=== PATIENT | female | born 1965 | race African-American/Black ===

== ENCOUNTER → 2018-06-27 | Day surgery (SDC) | payer OTHER ==
[~2018-06-27] MED LIST: IV RINGERS,LACTATED 1000ML 1,000 ML IV SCH; LIDOCAINE 1% PF 2 ML VIAL. ONE; NAPR-514 PO; ORPH100T PO; PROPOFOL 20 ML IV ONE
[2018-06-27 09:44] VITALS: BP 159/78
--- NOTE | 2018-06-27 20:02 | CONS ---
DATE OF CONSULTATION: 06/27/2018 REFERRING PHYSICIAN: Dr. Raúl Pike. REASON: Colorectal screening. HISTORY OF PRESENT ILLNESS: A 53-year-old -[place] female whose past medical history is significant for tubal ligation, hysterectomy, is seen for screening colonoscopy. Bowel habits have recently changed to smaller caliber stools, has some increased constipation. Weight and appetite have been stable. Family history is unrevealing for colon polyps or colon cancer, but no melena and/or hematochezia. She is without additional complaints. PAST MEDICAL HISTORY: Status post hysterectomy, status post tubal ligation, tobaccoism. ALLERGIES: PENICILLIN. MEDICATIONS: None. FAMILY AND SOCIAL HISTORY: She is a smoker and nondrinker. FAMILY HISTORY: Significant for ovarian cancer with her mother. REVIEW OF SYSTEMS: Per records. PHYSICAL EXAMINATION: GENERAL: Reveals a well-nourished, well-developed, -[place] female, who is alert, cooperative, in no acute distress. VITAL SIGNS: Temperature 97.7, pulse 67, respiratory rate is 18. HEENT: Normocephalic and atraumatic head. Pupils and extraocular muscles are not tested. Sclerae anicteric. NECK: Supple. LUNGS: Clear. CARDIOVASCULAR: Reveals an S1, S2 without S3, S4 or appreciable murmur. ABDOMEN: Reveals a soft abdomen, normal bowel sounds without appreciable hepatosplenomegaly. EXTREMITIES: Reveals no cyanosis, clubbing or edema. The infraumbilical hysterectomy incision is noted. IMPRESSION: Colorectal screening. Risks and benefits of procedure including risk of hemorrhage and perforation during the operation have been discussed. The patient is willing to proceed at this time. I would like to thank Dr. Pike for allowing us to consult and participate in this patient's care. VALENTINO MCCORMICK MD DR: ANTONIO/leslie JOB#: [id number] / [id number] ecc RAÚL PIKE MD
--- NOTE | 2018-06-30 14:19 | PATHOLOGY ---
[facility] Accession Number: [id number] . 01 Material submitted: . SIGMOID POLYP . 01 Clinical history: . Colon screening . 02 Diagnosis: Colon biopsy, sigmoid polyp: - Tubular adenoma. . (JPM:mm; 06/30/2018) [facility]/06/30/2018 . 02 Comment: There is no high grade dysplasia or evidence of malignancy. . (JPM:mm; 06/30/2018) . 02 Electronically signed: . Evan Lamas MD, Pathologist NPI- [id number] . 01 Gross description: . Received in formalin labeled "Orly [place], sigmoid colon polyp," is a 0.8 x 0.6 x 0.5 cm polypoid piece of powell soft tissue. The margin is inked and the specimen is sectioned perpendicular to the margin and entirely submitted in cassette A1. (TSD; 06/27/2018) TOB/TOB . 02 Pathologist provided ICD-10: D12.5 . 02 CPT . 648273 Specimen Comment: A courtesy copy of this report has been sent to Specimen Comment: [phone], . Specimen Comment: Report sent to / DR SOLIS Performed at: 01 [facility] [address], [place], [place] [id number] MD Victorino Javed MD Phone: [phone] Performed at: 02 [facility] [address], [place] [id number] MD Evan Lamas MD Phone: [phone]
== END | disposition home or self-care (01) ==
LOC: SURG 07:32
PROVIDERS: ATTEND Internal Medicine Gastroenterology
DX: D12.5 Benign neoplasm of sigmoid colon (principal); K59.00 Constipation, unspecified; K64.0 First degree hemorrhoids; Z80.0 Family history of malignant neoplasm of digestive organs; Z90.710 Acquired absence of both cervix and uterus; Z98.51 Tubal ligation status; Z98.890 Other specified postprocedural states
CPT/HCPCS: 45385; J2704; 45380; 88305

== ENCOUNTER 2018-12-12 18:31 | Emergency (ER) | payer OTHER ==
[~2018-12-12] VITALS: Ht 157.5 cm; Wt 66.7 kg
[~2018-12-12 18:31] MED LIST changes: -IV RINGERS,LACTATED 1000ML 1,000 ML IV SCH; -LIDOCAINE 1% PF 2 ML VIAL. ONE; -PROPOFOL 20 ML IV ONE
[2018-12-12 18:50] VITALS: BP 154/72
[2018-12-12] MEDS ORDERED: ORPH100T PO (19:14)
--- NOTE | 2018-12-12 19:14 | PHYS DOC ---
Past Medical History Past Medical History: No Pertinent History Past Surgical History: Hysterectomy, Other Additional Past Surgical Histo: L ARM Additional Information: 0.5 PPD Alcohol Use: None Drug Use: None Adult General Chief Complaint Chief Complaint: Neck Pain HPI HPI Patient is a 53 year old female that presents with neck pain since Saturday. Also states that bilateral tingling down her legs. The patient states that she was at a job interview and set chair in her neck popped, and she's had pain since that time. Patient rates her pain as 10 out of 10 and states is throbbing. The patient states some taken naproxen at home and that is not helping. Review of Systems Review of Systems Constitutional: Denies fever or chills [] Eyes: Denies change in visual acuity, redness, or eye pain [] HENT: Reports neck pain. Respiratory: Denies cough or shortness of breath [] Cardiovascular: No additional information not addressed in HPI [] GI: Denies abdominal pain, nausea, vomiting, bloody stools or diarrhea [] : Denies dysuria or hematuria [] Musculoskeletal: Denies back pain or joint pain [] Integument: Denies rash or skin lesions [] Neurologic: Denies headache, focal weakness or sensory changes [] Endocrine: Denies polyuria or polydipsia [] Complete systems were reviewed and found to be within normal limits, except as documented in this note. Current Medications Current Medications Current Medications Medications (Trade) Dose Ordered Sig/Essence Start Time Stop Time Status Last Admin Dose Admin Ketorolac Tromethamine (Toradol 30mg Vial) 30 mg 1X ONCE 12/12/18 19:15 12/12/18 19:16 Orphenadrine Citrate (Norflex) 60 mg 1X ONCE 12/12/18 19:15 12/12/18 19:16 Allergies Allergies Allergies Coded Allergies Type Severity Reaction Last Updated Verified Penicillins Allergy Intermediate Rash 06/27/18 Yes Physical Exam Physical Exam Constitutional: Well developed, well nourished, no acute distress, non-toxic appearance. [] HENT: Normocephalic, atraumatic, bilateral external ears normal, oropharynx moist, no oral exudates, nose normal. [] Eyes: PERRLA, EOMI, conjunctiva normal, no discharge. [] Neck: Reduced range of motion, Tenderness to Left side of neck, supple, no stridor or bruit. [] Cardiovascular:Heart rate regular rhythm, no murmur [] Lungs & Thorax: Bilateral breath sounds clear to auscultation [] Abdomen: Bowel sounds normal, soft, no tenderness, no masses, no pulsatile masses. [] Skin: Warm, dry, no erythema, no rash. [] Back: No tenderness, no CVA tenderness. [] Extremities: No deformity noted, Full ROM. Neurologic: Alert and oriented X 3, normal motor function, normal sensory function, no focal deficits noted. [] Psychologic: Affect normal, judgement normal, mood normal. [] Current Patient Data Vital Signs Vital Signs Date Time Temp Pulse Resp B/P (MAP) Pulse Ox O2 Delivery O2 Flow Rate FiO2 12/12/18 18:50 98.3 66 20 154/72 (99) 100 Room Air 98.3 EKG EKG [] Radiology/Procedures Radiology/Procedures [] Course & Med Decision Making Course & Med Decision Making Pertinent Labs and Imaging studies reviewed. (See chart for details) Appears to be musculoskeletal in nature. Will give Toradol and Norflex. Dragon Disclaimer Dragon Disclaimer This electronic medical record was generated, in whole or in part, using a voice recognition dictation system. Departure Departure Impression: Primary Impression: Cervical strain, acute Disposition: HOME, SELF-CARE Condition: STABLE Referrals: NO PCP (PCP) Patient Instructions: Musculoskeletal Pain Additional Instructions: Thank you for visiting [facility]. We appreciate you trusting us with your care. If any additional problems come up don't hesitate to return to visit us. Please follow up with your primary care provider so they can plan additional care if needed and know about the problem that you had. If symptoms worsen come back to the Emergency Department. Any concerning symptoms that start such as chest pain, shortness of air, weakness or numbness on one side of the body, running high fevers or any other concerning symptoms return to the ER. Please fill your medications at any pharmacy and follow the prescription instructions. Scripts Orphenadrine Citrate (ORPHENADRINE CITRATE) 100 Mg Tablet.er 1 TAB PO BID, #30 TAB 1 Refill Prov: MIGUELITO BOSCH KIM 12/12/18 Problem Qualifiers Primary Impression: Cervical strain, acute Encounter type: initial encounter Qualified Codes: S16.1XXA - Strain of muscle, fascia and tendon at neck level, initial encounter MIGUELITO BOSCH APRN Dec 12, 2018 19:14
[2018-12-12] MEDS ORDERED: ORPHENADRINE CITRATE 60 MG/2 ML VIAL. IM ONE (19:15)
[2018-12-12] MEDS ORDERED: KETOROLAC 30 MG/ML VIAL. IM ONE (19:15)
== END 2018-12-12 19:27 | disposition home or self-care (01) ==
LOC: ER 18:31
DX: S16.1XXA Strain of muscle, fascia and tendon at neck level, initial encounter (principal); F17.200 Nicotine dependence, unspecified, uncomplicated; Z88.0 Allergy status to penicillin; X50.9XXA Other and unspecified overexertion or strenuous movements or postures, initial encounter; Y93.89 Activity, other specified; Y92.89 Other specified places as the place of occurrence of the external cause; Y99.8 Other external cause status
CPT/HCPCS: 96372; 99284; J1885; J2360

== ENCOUNTER 2021-07-14 12:20 | Emergency (ER) | payer BC, OTHER ==
[~2021-07-14] VITALS: Ht 157.5 cm; Wt 66.4 kg
[2021-07-14] MEDS ORDERED: IBUPROFEN 200 MG TABLET. PO ONE (13:30)
[2021-07-14] MEDS ORDERED: DEXAMETHASONE SOD PHOS 20 MG/5 ML VIAL. IM ONE (13:30)
[2021-07-14] MEDS ORDERED: ACETAMINOPHEN 500 MG TABLET PO ONE (13:30)
--- NOTE | 2021-07-14 13:51 | PHYS DOC ---
Past Medical History Past Medical History: No Pertinent History Past Surgical History: Hysterectomy, Other Additional Past Surgical Histo: L ARM Smoking Status: Current Every Day Smoker Alcohol Use: None Drug Use: None General Adult EDM: Chief Complaint: FLU SYMPTOM HPI: HPI: Patient is a 56 year old female who presents to the emergency department complaining of ongoing muscle aches, generalized weakness, intermittent headaches, cough with congestion, intermittent ear popping with swallowing since being diagnosed with the COVID-19 virus on May. Patient reports her primary care physician Dr. Lucero advised she come to the emergency department for reevaluation concerning symptoms lasting for several weeks. Patient denies taking [id number] medications or prescription medications at home, has not tried nonpharmacological symptom relief methods at home. Patient also reports right side low back sciatica flareup for the past week. Patient denies injury to her back, denies numbness or tingling to her buttocks or genitals, denies urinary or bowel incontinence, denies urinary retention, denies burning with urination, increased urinary frequency, urinary pressure, denies hematuria, or other dysuria. Patient denies nausea, vomiting, diarrhea, denies chest pain or chest palpitations, denies nasal congestion. Patient denies fever or chills at home. Patient denies loss of taste or loss of smell. Patient denies other physical complaints or physical concerns. Patient reports a past surgical history of hysterectomy. Patient reports she does not take any prescription medications at home. Review of Systems: Review of Systems: 14 body systems of review of systems have been reviewed. See HPI for pertinent positives and negative responses, otherwise all other systems are negative, nonpertinent or noncontributory. Constitutional: Negative except as outlined in HPI above. Skin: Negative except as outlined in HPI above. Eyes: Negative except as outlined in HPI above. HENT: Negative except as outlined in HPI above. Respiratory: Negative except as outlined in HPI above. Cardiovascular: Negative except as outlined in HPI above. GI: Negative except as outlined in HPI above. : Negative except as outlined in HPI above. Musculoskeletal: Negative except as outlined in HPI above. Integument: Negative except as outlined in HPI above. Neurologic: Negative except as outlined in HPI above. Endocrine: Negative except as outlined in HPI above. Lymphatic: Negative except as outlined in HPI above. Psychiatric: Negative except as outlined in HPI above. Heart Score: C/O Chest Pain: No Risk Factors: Risk Factors: DM, Current or recent (<one month) smoker, HTN, HLP, family history of CAD, obesity. Risk Scores: Score 0 - 3: 2.5% MACE over next 6 weeks - Discharge Home Score 4 - 6: 20.3% MACE over next 6 weeks - Admit for Clinical Observation Score 7 - 10: 72.7% MACE over next 6 weeks - Early Invasive Strategies Allergies: Allergies: Allergies Coded Allergies Type Severity Reaction Last Updated Verified Penicillins Allergy Intermediate Rash 06/27/18 Yes Physical Exam: PE: Constitutional: Well developed, well nourished, no acute distress, non-toxic appearance. 56-year-old female in no apparent distress. HENT: Normocephalic, atraumatic. Oral mucosa moist, pink, no deep tissue infectious process appreciated, bilateral TMs intact and within normal limits, no drainage from external auditory canals, no lymphadenopathy of the head or neck appreciated. Patient is speaking in normal voice tones. Eyes: Conjunctiva normal, no discharge. No scleral icterus. Neck: Normal range of motion, no stridor. No nuchal rigidity, no meningismus signs. Cardiovascular: No cyanosis appreciated, distal cap refill less than 2 seconds. Heart sounds S1 1 S2, regular rate and rhythm auscultation. Lungs & Thorax: Patient is in no respiratory distress, no audible adventitious lung sounds appreciated. Lung sounds clear to auscultation all lung cole, normal work of breathing. Abdomen: Nontender, no abnormalities noted. Skin: Warm, dry, no erythema, no rash. Back: No left-sided or right-sided CVA TTP, no midline spinal pain, pain to palpation over right-sided lumbar muscular structures, no deformities. Extremities: No tenderness, no cyanosis, no clubbing, ROM intact, no edema. intact 5/5 motor strength with hip flexion, knee flexion,extension, knee adduction, plantar/dorsiflexion at the ankle, and dorsiflexion of the toe bilaterally. Distal cap refill less than 2 seconds of bilateral lower e xtremities, 2+ dorsalis pedis pulses equal bilateral lower extremities. Neurologic: Alert and oriented X 3, normal motor function, normal sensory function, no focal deficits noted. Psychologic: Affect normal, judgement normal, mood normal. Current Patient Data: Labs: Laboratory Tests Test 07/14/21 13:20 07/14/21 14:25 White Blood Count 5.0 x10^3/uL Red Blood Count 4.17 x10^6/uL Hemoglobin 12.8 g/dL Hematocrit 37.7 % Mean Corpuscular Volume 90 fL Mean Corpuscular Hemoglobin 31 pg Mean Corpuscular Hemoglobin Concent 34 g/dL Red Cell Distribution Width 13.5 % Platelet Count 203 x10^3/uL Neutrophils (%) (Auto) 71 % Lymphocytes (%) (Auto) 18 % Monocytes (%) (Auto) 9 % Eosinophils (%) (Auto) 1 % Basophils (%) (Auto) 1 % Neutrophils # (Auto) 3.6 x10^3/uL Lymphocytes # (Auto) 0.9 x10^3/uL Monocytes # (Auto) 0.5 x10^3/uL Eosinophils # (Auto) 0.1 x10^3/uL Basophils # (Auto) 0.0 x10^3/uL Sodium Level 144 mmol/L Potassium Level 3.8 mmol/L Chloride Level 105 mmol/L Carbon Dioxide Level 26 mmol/L Anion Gap 13 Blood Urea Nitrogen 9 mg/dL Creatinine 1.1 mg/dL Estimated GFR (Cockcroft-Gault) 61.7 Glucose Level 93 mg/dL Calcium Level 8.5 mg/dL Influenza Type A Antigen Positive Influenza Type B Antigen Negative SARS-CoV-2 Antigen (Rapid) Negative Vital Signs: Vital Signs Date Time Temp Pulse Resp B/P (MAP) Pulse Ox O2 Delivery O2 Flow Rate FiO2 07/14/21 12:33 102.7 91 20 143/81 (101) 97 Room Air 102.7 EKG: EKG: [] Radiology/Procedures: Radiology/Procedures: REASON: Cough, chest congestion PROCEDURE: CHEST AP ONLY Exam Date: 07/14/2021 1:31 PM XR CHEST 1V Indication: Reason: Cough, chest congestion / Spl. Instructions: / History: . FINDINGS/ IMPRESSION: Calcified granuloma in the right upper lobe is noted. The cardiac silhouette and pulmonary vasculature are within normal limits. There is no focal consolidation, pleural effusion or pneumothorax. The visualized osseous structures are intact. Electronically signed by: Kahlil Rabago MD (07/14/2021 2:08 PM) [facility] Course & Med Decision Making: Course & Med Decision Making Pertinent Labs and Imaging studies reviewed. (See chart for details) 56-year-old female, vital signs reviewed, presents to the emergency department complaining of ongoing flulike symptoms since being diagnosed with the COVID-19 virus on May 292021. Physical examination is consistent with sciatica flareup of the right, patient also presents with fever, will order rapid COVID- 19/flu A/B testing, CBC, BMP, saline lock, 1 L normal saline, Tylenol and Motrin for fever and generalized body aches. No saddle anesthesia present. Patient has intact 5/5 motor strength with hip flexion, knee flexion,extension, knee adduction, plantar/dorsiflexion at the ankle, and dorsiflexion of the toe bilaterally. Additionally there was no hx of IVDU, Immunosuppression, cancer, saddle anesthesia, bowel/bladder incontinence/retention, or trauma that would necessitate emergent imaging. Will reevaluate after period of time. Patient's serum labs unremarkable, the patient rapid Covid testing is negative, rapid flu B is negative, patient did test positive for rapid flu A. Upon reevaluation of the patient, patient reports she feels much better now, patient's current oral temp is 98.8. Considered Tamiflu regimen however onset of systems greater than 48 hours, discussed with patient home care for flu symptoms, staying well-hydrated, Tylenol and/or Motrin use for fevers, [id number] cold and flu medications for symptoms, discussed with patient home care for sciatica flareup, strict follow-up with primary care for ongoing symptoms, return to ER precautions and concerns were discussed, patient gave verbal understanding of and is amenable to ED discharge planning. Discussed with the patient all findings and diagnostic testing as well as the need to follow-up with their primary care provider for further evaluation and treatment or return to the ED if any new or worsening symptoms. Strict return precautions were also discussed at length, the patient voiced understanding and agreement with the discharge planning. The patient was nontoxic in appearance, in no apparent distress, and hemodynamically stable at the time of disposition. Dragon Disclaimer: Dragon Disclaimer: This electronic medical record was generated, in whole or in part, using a voice recognition dictation system. Departure Departure Impression: Primary Impression: Influenza A Additional Impressions: Viral syndrome Lumbago Qualified Codes: M54.41 - Lumbago with sciatica, right side; G89.29 - Other chronic pain Disposition: 01 HOME / SELF CARE / HOMELESS Condition: GOOD Referrals: MOI LUCERO MD (PCP) Patient Instructions: Influenza Facts, Influenza Virus Vaccine injection (Fluarix), Sciatica, Viral Syndrome Additional Instructions: You were seen today in the emergency department for flulike signs and symptoms since May. Your rapid Covid test is negative, you were positive for influenza A, you were also treated today with a steroid and pain medication for your sciatica flareup, you were given 1 L normal saline intravenously along with oral Tylenol and Motrin for fevers and your low right-sided back pain. Your fever has resolved and you reported you are feeling much better after treatment in the ER today. As we discussed, I suspect your fever may return, please use Tylenol and/or Motrin for return of fevers, body aches and pains, you may consider using hnun-eou-qaidjzf cold and flu medications to help with symptoms, stay well-hydrated, please follow-up with your primary care physician for ongoing symptoms, return to the emergency department for worsening symptoms or other concerns, thank you for visiting our Emergency Department. It was a pleasure taking care of you today in the emergency department and we appreciate you trusting us with your care. If any additional problems come up don't hesitate to return to visit us. Please follow up with your primary care provider so they can plan additional care if needed and know about the problem that you had. If symptoms worsen come back to the Emergency Department. Any concerning symptoms that start such as chest pain, shortness of air, weakness or numbness on one side of the body, running high fevers or any other concerning symptoms return to the ER. MIGUELITO LEONARD APRN Jul 14, 2021 13:51
[2021-07-14 14:00] LABS: BASO % 1 % (0-3); EOS # 0.1 x10^3/uL (0.0-0.7); EOS % 1 % (0-3); HEMATOCRIT 37.7 % (36.0-47.0); HEMOGLOBIN 12.8 g/dL (12.0-15.5); LYMPH # 0.9 x10^3/uL (1.0-4.8); LYMPH % 18 % (24-48); MEAN CORPUSCULAR HEMOGLOBIN 31 pg (25-35); MEAN CORPUSCULAR HGB CONC 34 g/dL (31-37); MEAN CORPUSCULAR VOLUME 90 fL (79-100); MONO # 0.5 x10^3/uL (0.0-1.1); MONO % 9 % (0-9); NEUT # 3.6 x10^3/uL (1.8-7.7); NEUT % 71 % (31-73); PLATELET COUNT 203 x10^3/uL (140-400); RED BLOOD COUNT 4.17 x10^6/uL (3.50-5.40); RED CELL DISTRIBUTION WIDTH 13.5 % (11.5-14.5)
[2021-07-14] MEDS ORDERED: IV NORMAL SALINE 1000ML BAG 1,000 ML IV ONE (14:00)
[2021-07-14 14:09] LABS: CALCIUM 8.5 mg/dL (8.5-10.1); CREATININE 1.1 mg/dL (0.6-1.0); GFR 61.7; POTASSIUM 3.8 mmol/L (3.5-5.1)
--- NOTE | 2021-07-14 14:10 | RAD ---
Exam Date: 07/14/2021 1:31 PM XR CHEST 1V Indication: Reason: Cough, chest congestion / Spl. Instructions: / History: . FINDINGS/ IMPRESSION: Calcified granuloma in the right upper lobe is noted. The cardiac silhouette and pulmonary vasculature are within normal limits. There is no focal consolidation, pleural effusion or pneumothorax. The visualized osseous structures are intact. Electronically signed by: Kahlil Rabago MD (07/14/2021 2:08 PM) [facility]
[2021-07-14] MEDS ORDERED: DEXAMETHASONE SOD PHOS 20 MG/5 ML VIAL. IV ONE (14:30)
[2021-07-14 14:48] VITALS: BP 159/77
[2021-07-14 14:53] LABS: INFLUENZA B PATIENT NEGATIVE (NEGATIVE)
[2021-07-14 14:56] LABS: INFLUENZA A PATIENT POSITIVE (NEGATIVE)
== END 2021-07-14 15:25 | disposition home or self-care (01) ==
LOC: ER 12:20 → UNDOADMIN 12:48 → ED HOLD 12:48 → ER 15:25
DX: J09.X2 Influenza due to identified novel influenza A virus with other respiratory manifestations (principal); F17.200 Nicotine dependence, unspecified, uncomplicated; Z90.710 Acquired absence of both cervix and uterus; Z88.0 Allergy status to penicillin; Z20.822 Contact with and (suspected) exposure to COVID-19
CPT/HCPCS: 36415; 71045; 80048; 85025; 87428; 96361; 96374; 99284; J1100; J7030

== ENCOUNTER → 2021-09-14 | Outpatient (CLI) | payer BC ==
[~2021-09-14] MED LIST changes: +ATOR10TA60 PO; +MELO15TA23 PO
--- NOTE | 2021-09-14 13:57 | EKG ---
[facility] [address] [place] [address] Test Date: 2021-09-14 Test Time: 13:57:05 Pat Name: FOREST JONES Department: Room: Gender: F Methods Analyst Data Processing: TAMRA : 1965 Requested By: SARAH SIMONS Order Number: [id number] Reading MD: Warren Sandoval Measurements Intervals [place] Rate: 46 P: 42 MT: 148 QRS: 24 QRSD: 82 T: 35 QT: 500 QTc: 439 Interpretive Statements SINUS BRADYCARDIA OTHERWISE NORMAL ECG RI6.01 No previous ECG available for comparison Electronically Signed On 09-15-2021 17:52:33 CDT by Warren Sandoval
[2021-09-14 14:17] LABS: BASO % 1 % (0-3); EOS # 0.1 x10^3/uL (0.0-0.7); EOS % 2 % (0-3); HEMATOCRIT 35.7 % (36.0-47.0); HEMOGLOBIN 12.1 g/dL (12.0-15.5); LYMPH # 2.8 x10^3/uL (1.0-4.8); LYMPH % 50 % (24-48); MEAN CORPUSCULAR HEMOGLOBIN 31 pg (25-35); MEAN CORPUSCULAR HGB CONC 34 g/dL (31-37); MEAN CORPUSCULAR VOLUME 91 fL (79-100); MONO # 0.3 x10^3/uL (0.0-1.1); MONO % 5 % (0-9); NEUT # 2.4 x10^3/uL (1.8-7.7); NEUT % 42 % (31-73); PLATELET COUNT 212 x10^3/uL (140-400); RED BLOOD COUNT 3.91 x10^6/uL (3.50-5.40); RED CELL DISTRIBUTION WIDTH 13.4 % (11.5-14.5); WHITE BLOOD COUNT 5.6 x10^3/uL (4.0-11.0)
[2021-09-14 14:27] LABS: ALBUMIN 3.5 g/dL (3.4-5.0); CALCIUM 9.3 mg/dL (8.5-10.1); CREATININE 1.1 mg/dL (0.6-1.0); GFR 61.7; POTASSIUM 3.6 mmol/L (3.5-5.1)
[2021-09-14 14:28] LABS: PROTHROMBIN TIME PATIENT 12.9 SEC (11.7-14.0)
[2021-09-15 04:11] LABS: HEMOGLOBIN A1C 5.4 % (4.8-5.6)
== END ==
LOC: SURGPAT 13:06
PROVIDERS: ATTEND Orthopaedic Surgery
DX: Z01.818 Encounter for other preprocedural examination (principal); M16.11 Unilateral primary osteoarthritis, right hip
CPT/HCPCS: 36415; 80048; 82040; 82306; 83036; 85025; 85610; 85651; 85730; 87641; 93005

== ENCOUNTER → 2021-09-22 | Outpatient (CLI) | payer BC | LOC: LAB 09:48 | PROVIDERS: ATTEND Orthopaedic Surgery | DX: Z01.812 Encounter for preprocedural laboratory examination (principal); Z20.822 Contact with and (suspected) exposure to COVID-19 | CPT/HCPCS: U0003 ==

== ENCOUNTER 2021-09-25 07:51 | Observation (INO) | payer BC ==
[~2021-09-25] VITALS: Ht 162.6 cm; Wt 66.7 kg
[2021-09-25] VITALS (13 sets, daily range): BP systolic 103–171; BP diastolic 61–114
[~2021-09-25 07:51] MED LIST changes: +ACETAMINOPHEN 500 MG TABLET PO PRN; +CLINDAMYCIN 900MG PREMIX 50 ML IV PRN; +DEXAMETHASONE SOD PHOS 4 MG/ML VIAL ONE; +GABAPENTIN 300 MG CAPSULE. PO PRN; +HYDROmorphone 2 MG/ML INJ. IVP PRN; +IV RINGERS,LACTATED 1000ML 1,000 ML IV SCH; +LIDOCAINE 1% PF 5 ML VIAL. ONE; +MELOXICAM 7.5 MG TABLET PO PRN; +MORPHINE SULFATE 2 MG/ML INJ. IVP PRN; +MORPHINE SULFATE 5 MG, KETOROLAC 30MG VIAL 30 MG, ROPIVacaine 0.5% PF 60 ML, EPINEPHrin... INT ART ONE; +ONDANSETRON PF 4 MG/2 ML VIAL. ONE; +PROCHLORPERAZINE 10 MG/2 ML VIAL. IVP PRN; +PROPOFOL 10 MG/ML (20ML) VIAL. IV ONE; +ROCURONIUM 100 MG/10 ML VIAL. ONE; +TRANEXAMIC ACID 1,000 MG in IV NS 50ML -- 1ST BAG INJ ONE; +fentaNYL PF VIAL 100 MCG/2 ML VIAL IVP PRN
[2021-09-25] MEDS ORDERED: TRANEXAMIC ACID 1,000 MG in IV NS 50ML -- 2ND BAG INJ ONE (08:00)
[2021-09-25] MEDS ORDERED: fentaNYL PF VIAL 100 MCG/2 ML VIAL ONE (08:40)
[2021-09-25] MEDS ORDERED: TRANEXAMIC ACID in NS IVPB 50 ML ONE (09:27)
--- NOTE | 2021-09-25 10:53 | PDOC4 ---
OPERATIVE NOTE Date: Date: September 25, 2021 Pre-Op Diagnosis: 1. 56-year-old female primary osteoarthritis right hip Post-Op Diagnosis: 1. 56-year-old female primary osteoarthritis right hip 2. Status post right primary total hip arthroplasty Procedure Performed: 1. Right primary total hip arthroplasty Surgeon: Gricel Anesthesia Type: General Blood Loss: 200 cc Specimans Obtained: Products of right primary total hip arthroplasty Complications: Patient tolerated the procedure well without any apparent intraoperative complications. Operative Note: See dictation SHANE HOWARD September 25, 2021 10:53
[2021-09-25] MEDS ORDERED: diphenhydrAMINE 50 MG/ML VIAL IVP PRN (11:00)
[2021-09-25] MEDS ORDERED: MORPHINE SULFATE 2 MG/ML INJ. IVP PRN (11:00)
[2021-09-25] MEDS ORDERED: CALCIUM CARBONATE 500 MG TAB.CHEW PO PRN (11:00)
[2021-09-25] MEDS ORDERED: DEXTROSE 50% 25 GM / 50ML DISP.SYRIN. IV PRN (11:00)
[2021-09-25] MEDS ORDERED: 0.9 % SODIUM CHLORIDE 10 ML DISP.SYRIN. IV PRN (11:00)
[2021-09-25] MEDS ORDERED: SUGAMMADEX SODIUM 200 MG/2 ML VIAL. IVP ONE (11:15)
[2021-09-25] MEDS ORDERED: PHENYLEPHRINE in 0.9% NACL PF 1 MG/10 ML SYRINGE. IV ONE (11:24)
[2021-09-25] MEDS ORDERED: GLYCOPYRROLATE 1 MG/5 ML VIAL. ONE (11:24)
[2021-09-25] MEDS ORDERED: HYDROmorphone 2 MG/ML INJ. ONE (11:31)
[2021-09-25] MEDS: IV RINGERS,LACTATED 1000ML 1,000 ML IV SCH (12:00)
[2021-09-25] MEDS: ONDANSETRON PF 4 MG/2 ML VIAL. IVP SCH ×3 (12:00→23:38)
[2021-09-25] MEDS: ONDANSETRON ODT 4 MG TAB.RAPDIS. PO SCH ×3 (12:00→23:38)
--- NOTE | 2021-09-25 12:45 | HP ---
DATE OF SERVICE: 09/25/2021 ADMIT DATE: 09/25/2021 HISTORY OF PRESENT ILLNESS: The patient is here today. She is a 56-year-old female here today with complaints of right hip pain, which has been unremitting to conservative therapies. She has tried multiple conservative therapies, nothing is helping her symptoms. She is now having significant activities of daily living difficulties secondary to that. Also, any attempts at activities outside of that even at work or at home are met with significant pain, discomfort and issues completing tasks. No other complaints at this point. PAST MEDICAL HISTORY: Remarkable for knee pain as well as cervical DJD with radiculopathy and lumbar radiculopathy. MEDICATIONS: Acetaminophen, aspirin, Dulcolax, Tums, occasional clindamycin, ____, meloxicam and naproxen. MEDICATION ALLERGIES: PENICILLIN. PHYSICAL EXAMINATION: GENERAL: She is alert and oriented x 3. HEENT: She is having no issues with examination of HEENT. HEART: Regular rate and rhythm. LUNGS: Clear to auscultation in all cole. ABDOMEN: Soft and nontender. Normal bowel sounds. MUSCULOSKELETAL: The hip is painful with flexion, extension, internal and external rotation. She actually has only 10 degrees of internal rotation today. External rotation 25, abduction 25, flexion is to 90 only, but she does not have any flexion contracture at this point, but pain throughout the arc of motion at this point. Distal neurovascular status is fully intact. No atrophy of musculature. IMPRESSION: Severe degenerative joint disease, right hip. PLAN: At this time, we have talked with her again about the right hip. We have gone over the risks, complications as well as benefits and expectations of surgery, postoperative protocol and followup. She would like to go ahead and get that done as soon as she sees Anesthesia this morning. GÓMEZ/NATHAN DR: Cecil TID: [id number]
--- NOTE | 2021-09-25 13:21 | PDOC2 ---
CONSULT Date of Consult Date of Consult DATE: 09/25/21 TIME: 13:19 Reason for Consult Reason for Consult: Medical Management Referring Physician Referring Physician: Dr. Reinier Monsalve Identification/Chief Complaint Chief Complaint Right hip osteoarthritis/pain Source Source: Chart review, Patient History of Present Illness Reason for Visit: Ms Washington is a 56yo female with PMHx HLD, osteoarthritis, smoker who comes in for severe right hip osteoarthritis pain for elective total hip arthroplasty. Immediately postoperatively was cold improved with bear hugger. Did not require oxygen for several hours upon awakening is alert and has improved pain in her right hip. Preoperative labs with CR 1.1 A1c 5.4, preoperative EKG sinus rhythm ST segment abnormalities TWI or Q waves. Past Medical History Cardiovascular: Hyperlipidemia Past Surgical History Past Surgical History: Total hip replacement (Right), Tubal Ligation, Hysterectomy, Other (left elbow tennis elbow release. Right LEO 09/25/2021) Family History Family History: High Cholestrol, Hypothyroidism Social History <1 pack per day ALCOHOL: none Drugs: None Lives: with Family Domestic Violence: Neg Current Medications Current Medications Current Medications Fentanyl Citrate (Fentanyl 2ml Vial) 25 mcg PRN Q5MIN PRN IVP MILD PAIN 1-3; Start 09/25/21 at 06:00; Stop 09/26/21 at 05:59 Fentanyl Citrate (Fentanyl 2ml Vial) 50 mcg PRN Q5MIN PRN IVP MODERATE PAIN 4- 6; Start 09/25/21 at 06:00; Stop 09/26/21 at 05:59 Morphine Sulfate (Morphine Sulfate) 1 mg PRN Q10MIN PRN IVP SEVERE PAIN 7-10; Start 09/25/21 at 06:00; Stop 09/26/21 at 05:59 Ringer's Solution 1,000 ml @ 30 mls/hr Q24H IV Last administered on 09/25/21at 08:38; Start 09/25/21 at 06:00; Stop 09/25/21 at 17:59 Hydromorphone HCl (Dilaudid) 0.5 mg PRN Q10MIN PRN IVP SEVERE PAIN 7-10, 2nd CHOICE; Start 09/25/21 at 06:00; Stop 09/26/21 at 05:59 Prochlorperazine Edisylate (Compazine) 5 mg PACU PRN PRN IVP NAUSEA, MRX1; Start 09/25/21 at 06:00; Stop 09/26/21 at 05:59 Meloxicam (Mobic) 15 mg 1X PREOP PRN PO PRIOR TO PROCEDURE Last administered on 09/25/21at 08:37; Start 09/25/21 at 06:00; Stop 09/25/21 at 18:00 Gabapentin (Neurontin) 600 mg 1X PREOP PRN PO PRIOR TO PROCEDURE Last admini stered on 09/25/21at 08:37; Start 09/25/21 at 06:00; Stop 09/25/21 at 18:00 Acetaminophen (Tylenol) 1,000 mg 1X PREOP PRN PO PRIOR TO PROCEDURE Last administered on 09/25/21at 08:37; Start 09/25/21 at 06:00; Stop 09/25/21 at 18:00 Clindamycin Phosphate 50 ml @ 100 mls/hr 1X PREOP PRN IV PRIOR TO PROCEDURE; Start 09/25/21 at 06:00; Stop 09/25/21 at 18:00 Morphine Sulfate 5 mg/Ketorolac Tromethamine 30 mg/Ropivacaine 60 ml/Epinephrine HCl 0.5 mg/Sodium Chloride 62 ml @ 62 mls/hr 1X PERIOP ONCE INT ART Last administered on 09/25/21at 11:17; Start 09/25/21 at 06:00; Stop 09/25/21 at 06:59; Status DC Tranexamic Acid 50 ml @ 50 mls/hr 1X PERIOP ONCE INJ ; Start 09/25/21 at 06:00; Stop 09/25/21 at 06:59; Status DC Tranexamic Acid 50 ml @ 50 mls/hr 1X PERIOP ONCE INJ Last administered on 09/25/21at 11:17; Start 09/25/21 at 08:00; Stop 09/25/21 at 08:59; Status DC Propofol (Diprivan) 200 mg STK-MED ONCE IV ; Start 09/25/21 at 06:56; Stop 09/25/21 at 06:57; Status DC Lidocaine HCl (Xylocaine-Mpf 1% 5ml Vial) 5 ml STK-MED ONCE .ROUTE ; Start 09/25/21 at 06:57; Stop 09/25/21 at 06:57; Status DC Rocuronium [place] (Zemuron) 100 mg STK-MED ONCE .ROUTE ; Start 09/25/21 at 06:57; Stop 09/25/21 at 06:57; Status DC Ondansetron HCl (Zofran) 4 mg STK-MED ONCE .ROUTE ; Start 09/25/21 at 07:00; Stop 09/25/21 at 07:01; Status DC Dexamethasone Sodium Phosphate (Decadron) 4 mg STK-MED ONCE .ROUTE ; Start 09/25/21 at 07:00; Stop 09/25/21 at 07:01; Status DC Fentanyl Citrate (Fentanyl 2ml Vial) 100 mcg STK-MED ONCE .ROUTE ; Start 09/25/21 at 08:40; Stop 09/25/21 at 08:40; Status DC Tranexamic Acid 50 ml @ As Directed STK-MED ONCE .ROUTE ; Start 09/25/21 at 09:27; Stop 09/25/21 at 09:27; Status DC Morphine Sulfate (Morphine Sulfate) 2 mg PRN Q1HR PRN IVP PAIN; Start 09/25/21 at 11:00 Diphenhydramine HCl (Benadryl) 25 mg PRN Q6HRS PRN IVP ITCHING; Start 09/25/21 at 11:00 Senna/Docusate Sodium (Senna Plus) 1 tab DAILY PO ; Start 09/26/21 at 09:00 Clindamycin Phosphate 50 ml @ 100 mls/hr Q6H IV ; Start 09/25/21 at 17:00; Stop 09/26/21 at 05:29 Magnesium Hydroxide (Milk Of Magnesia) 2,400 mg 1X PRN PRN PO CONSTIPATION; Start 09/26/21 at 06:00; Stop 09/27/21 at 05:59 Bisacodyl (Dulcolax Supp) 10 mg 1X PRN PRN AR CONSTIPATION; Start 09/26/21 at 16:00; Stop 09/27/21 at 15:59 Calcium Carbonate/ Glycine (Tums) 500 mg PRN QID PRN PO INDIGESTION; Start 09/25/21 at 11:00 Sodium Chloride (Normal Saline Flush) 10 ml QSHIFT PRN IV AFTER MEDS AND BLOOD DRAWS; Start 09/25/21 at 11:00 Acetaminophen (Tylenol) 1,000 mg Q6H PO ; Start 09/26/21 at 09:00 Gabapentin (Neurontin) 100 mg Q8HRS PO ; Start 09/26/21 at 06:00 Ondansetron HCl (Zofran) 4 mg Q6HRS IVP ; Start 09/25/21 at 12:00; Stop 09/26/21 at 06:01 Ondansetron HCl (Zofran Odt) 4 mg Q6HRS PO ; Start 09/25/21 at 12:00; Stop 09/26/21 at 06:01 Oxycodone HCl (Roxicodone) 5 mg PRN Q4HRS PRN PO Pain score 4-6; Start 09/25/21 at 11:00 Dextrose (Dextrose 50%-Water Syringe) 12.5 gm PRN Q15MIN PRN IV SEE COMMENTS; Start 09/25/21 at 11:00 Ringer's Solution 1,000 ml @ 75 mls/hr [id number] IV ; Start 09/25/21 at 12:00 Aspirin (Melissa Aspirin) 325 mg BID PO ; Start 09/25/21 at 21:00 Sugammadex Sodium (Bridion) 200 mg 1X ONCE IVP ; Start 09/25/21 at 11:15; Stop 09/25/21 at 11:16; Status DC Glycopyrrolate (Robinul) 1 mg STK-MED ONCE .ROUTE ; Start 09/25/21 at 11:24; Stop 09/25/21 at 11:25; Status DC Phenylephrine HCl (PHENYLEPHRINE in 0.9% NACL PF) 1 mg STK-MED ONCE IV ; Start 09/25/21 at 11:24; Stop 09/25/21 at 11:25; Status DC Hydromorphone HCl (Dilaudid) 2 mg STK-MED ONCE .ROUTE ; Start 09/25/21 at 11:31; Stop 09/25/21 at 11:31; Status DC Active Scripts Active Naproxen 500 Mg Tablet 1 Tab PO BID 10 Days Reported Meloxicam 15 Mg Tablet 1 Tab PO BID 30 Days Atorvastatin Calcium 10 Mg Tablet 10 Mg PO HS Allergies Allergies: Coded Allergies: Penicillins (Verified Allergy, Intermediate, Rash, 09/25/21) hives ROS General: No: Chills, Night Sweats, Fatigue, Malaise, Appetite, Other PSYCHOLOGICAL ROS: No: Anxiety, Behavioral Disorder, Concentration difficultie, Decreased libido, Depression, Disorientation, Hallucinations, Hostility, Irritablity, Memory difficulties, Mood Swings, Obsessive thoughts, Physical abuse, Sexual abuse, Sleep disturbances, Suicidal ideation, Other Eyes: No Blurry vision, No Decreased vision, No Double vision, No Dry eyes, No Excessive tearing, No Eye Pain, No Itchy Eyes, No Loss of vision, No Photophobia, No Scotomata, No Uses contacts, No Uses glasses, No Other HEENT: No: Heacaches, Visual Changes, Hearing change, Nasal congestion, Nasal discharge, Oral lesions, Sinus pain, Sore Throat, Epistaxis, Sneezing, Snoring, Tinnitus, Vertigo, Vocal changes, Other ALLERGY AND IMMUNOLOGY: No: Hives, Insect Bite Sensitivity, Itchy/Watery Eyes, Nasal Congestion, Post Nasal Drip, Seasonal Allergies, Other Hematological and Lymphatic: No: Bleeding Problems, Blood Clots, Blood Transfusions, Brusing, Night Sweats, Pallor, Swollen Lymph Nodes, Other ENDOCRINE: No: Breast Changes, Galactorrhea, Hair Pattern Changes, Hot Flashes, Malaise/lethargy, Mood Swings, Palpitations, Polydipsia/polyuria, Skin Changes, Temperature Intolerance, Unexpected Weight Changes, Other Breast: No New/Changing Breast Lumps, No Nipple changes, No Nipple discharge, No Other Respiratory: No: Cough, Hemoptysis, Orthopnea, Pleuritic Pain, Shortness of breath, SOB with excertion, Sputum Changes, Stridor, Tachypnea, Wheezing, Other Cardiovascular: No Chest Pain, No Palpitations, No Orthopnea, No Paroxysmal Noc. Dyspnea, No Edema, No Lt Headedness, No Other Gastrointestinal: No Nausea, No Vomiting, No Abdominal Pain, No Diarrhea, No Constipation, No Melena, No Hematochezia, No Other Genitourinary: No Dysuria, No Frequency, No Incontinence, No Hematuria, No Retention, No Discharge, No Urgency, No Pain, No Flank Pain, No Other, No , No , No , No , No , No , No Musculoskeletal: Yes Gait Disturbance, Yes Joint Pain, Yes Joint Stiffness; No Joint Swelling, No Muscle Pain, No Muscular Weakness, No Pain In:, No Swelling In:, No Other Neurological: No Behavorial Changes, No Bowel/Bladder ControlChng, No Confusion, No Dizziness, No Gait Disturbance, No Headaches, No Impaired Coord/balance, No Memory Loss, No Numbness/Tingling, No Seizures, No Speech Problems, No Tremors, No Visual Changes, No Weakness, No Other Skin: No Dry Skin, No Eczema, No Hair Changes, No Lumps, No Mole Changes, No Mottling, No Nail Changes, No Pruritus, No Rash, No Skin Lesion Changes, No Other, No Acne Physical Exam General: Alert, Oriented X3, Cooperative, No acute distress HEENT: Atraumatic, PERRLA, EOMI, Mucous membr. moist/pink Lungs: Clear to auscultation, Normal air movement Heart: Regular rate, Normal S1, Normal S2, No murmurs Abdomen: Normal bowel sounds, Soft, No tenderness, No hepatosplenomegaly, No masses Extremities: No clubbing, No cyanosis, No edema, Normal pulses, Other (Righ hip tender, dressing dry intact) Skin: No rashes, No breakdown Neuro: Normal speech, Strength at 5/5 X4 ext, Normal tone, Sensation intact, Cranial nerves 3-12 NL, Reflexes 2+ Psych/Mental Status: Mental status NL, Mood NL MUSCULOSKELETAL: Other (Right hip dressing intact) Vitals VITALS Vital Signs Date Time Temp Pulse Resp B/P (MAP) Pulse Ox O2 Delivery O2 Flow Rate FiO2 09/25/21 13:06 97.9 89 17 132/66 96 Room Air 97.9 09/25/21 12:51 6.0 Labs Labs Laboratory Tests Test 09/25/21 08:10 POC SARS CoV-2 Antigen Negative (NEGATIVE) Laboratory Tests Test 09/25/21 08:10 POC SARS CoV-2 Antigen Negative (NEGATIVE) Assessment/Plan Assessment/Plan Right hip osteoarthritis - s/p THR. Aspirin for thromboprophylaxis. POD IV lida n control. Early ambulation. Bedside incentive spirometer Smoker - counseled on cessation Hypoxia - transient post-operatively. Advised outpatient sleep study, smoking cessation, prn nebs Hypothermia - transient post-op FEN - regular diet PPX - ASA FULL CODE Dispo - observation s/p ELBA DENNEY MD September 25, 2021 13:21
--- NOTE | 2021-09-25 13:23 | RAD ---
EXAM: Pelvis and right hip, 2 views. HISTORY: Arthroplasty. COMPARISON: 08/31/2021 FINDINGS: A frontal view of the pelvis and lateral view of the right hip are obtained. There is a rig ht hip arthroplasty in expected position. There is surrounding soft tissue gas due to recent surgery. There is mild marginal left femoral head spurring. IMPRESSION: Right hip arthroplasty in expected position. Electronically signed by: Lakeshia Velasquez MD (09/25/2021 1:20 PM) [id number]
[2021-09-25] MEDS ORDERED: NICOTINE 21MG PATCH. TD PRN (13:30)
[2021-09-25] MEDS ORDERED: MORPHINE SULFATE 2 MG/ML INJ. ONE (13:33)
[2021-09-25] MEDS: CLINDAMYCIN 900MG PREMIX 50 ML IV SCH ×2 (16:19→23:38)
[2021-09-25] MEDS: oxyCODONE IR 5 MG TABLET PO PRN ×2 (17:30→21:44)
[2021-09-25] MEDS: ASPIRIN 325 MG TABLET PO SCH (21:44)
[2021-09-26] MEDS: IV RINGERS,LACTATED 1000ML 1,000 ML IV SCH ×2 (01:20→14:40)
[2021-09-26 02:40] VITALS: BP 108/66
[2021-09-26] MEDS: CLINDAMYCIN 900MG PREMIX 50 ML IV SCH (05:30)
[2021-09-26] MEDS: ONDANSETRON ODT 4 MG TAB.RAPDIS. PO SCH (05:30)
[2021-09-26] MEDS: ONDANSETRON PF 4 MG/2 ML VIAL. IVP SCH (05:30)
[2021-09-26] MEDS: GABAPENTIN 100 MG CAPSULE. PO SCH ×3 (05:30→21:49)
[2021-09-26] MEDS ORDERED: MAGNESIUM HYDROXIDE 2,400 MG/30 ML ORAL.SUSP. PO PRN (06:00)
[2021-09-26 06:29] VITALS: BP 107/69
--- NOTE | 2021-09-26 08:22 | PDOC ---
PROGRESS NOTES Date of Service DATE: 09/26/21 TIME: 08:16 Subjective Subjective POD #1 s/p R LEO Patient seen and examined this morning. Awake sitting upright in bed talking on the telephone. Denies any complaints of pain at this time. Tolerating p.o. intake. Denies chest pain or shortness of breath. No abdominal pain or discomfort. 2500 on IS. Mobilizing to the bathroom this morning without issues. No bowel movement yet. Passing minimal flatus. No acute events overnight. Objective Vital Signs Vital Signs Date Time Temp Pulse Resp B/P (MAP) Pulse Ox O2 Delivery O2 Flow Rate FiO2 09/26/21 06:29 98.4 63 16 107/69 (82) 95 Room Air 98.4 09/25/21 14:00 3.0 Physical Exam Orthopedic examination of the right hip reveals surgical dressing to be intact. No drainage noted. Compartments are at the right extremity are soft compressible. Calf is nontender. EHL/FHL intact. Plantarflexion/dorsiflexion intact. Sensation to light touch intact in all dermatomes. Cap refill brisk. Right lower extremity is warm and well-perfused. No pain with passive stretch. Negative Homans' sign. No evidence of thrombus. Labs Laboratory Tests Test 09/25/21 08:10 POC SARS CoV-2 Antigen Negative (NEGATIVE) Imaging Plain film x-rays of the right hip performed postoperatively on 09/25/2021 reviewed this morning. Orthopedic hardware remains in anatomic alignment with no acute postoperative abnormalities noted. Assessment Assessment 56-year-old female primary osteoarthritis right hip * s/p R primary total hip arthroplasty 09/25 - Gricel * WBAT RLE * Anterior lateral hip precautions to include no extension past neutral, no adduction past midline, no external rotation past neutral x6 weeks. * PT/OT for mobilization, gait training and fall prevention * ICE operative extremity prn * Maintain surgical dressings R hip * Post-op abx (Clindamycin x24hrs post-op) * DVT ppx (ASA 325mg BID) aspirin x4 weeks on discharge for DVT prophylaxis * AM labs pending * VSS * CM for discharge planning; awaiting therapy recommendations postoperatively. Patient reports having family support at home. Desires to go home postoperatively. We will have patient work with therapy. If she does well today anticipate possibly home with home health services. * Follow-up with orthopedic clinic in 1 to 2 weeks following discharge in the hospital. Call to schedule. [phone]. Justicifation of Admission Dx: Justifications for Admission: Justification of Admission Dx: Yes SHANE HOWARD September 26, 2021 08:21
[2021-09-26] MEDS: oxyCODONE IR 5 MG TABLET PO PRN ×2 (08:38→21:49)
[2021-09-26] MEDS: SENNOSIDES/DOCUSATE 8.6/50MG TABLET. PO SCH (08:38)
[2021-09-26] MEDS: ASPIRIN 325 MG TABLET PO SCH ×2 (08:38→21:48)
[2021-09-26] MEDS: ACETAMINOPHEN 500 MG TABLET PO SCH ×3 (08:39→21:49)
[2021-09-26 11:57] VITALS: BP 137/83
--- NOTE | 2021-09-26 12:14 | PDOC ---
[facility] PROGRESS NOTE Date of Service DOS: DATE: 09/26/21 TIME: 12:12 Chief Complaint Chief Complaint Assessment/Plan Right hip osteoarthritis - s/p THR. Aspirin for thromboprophylaxis. POD IV pain control. Early ambulation. Bedside incentive spirometer. Pending PT OT evaluation Smoker - counseled on cessation Hypoxia - transient post-operatively. Advised outpatient sleep study, smoking cessation, prn nebs Hypothermia - transient post-op FEN - regular diet PPX - ASA FULL CODE Dispo -Home with home health History of Present Illness History of Present Illness 56yo female with PMHx HLD, osteoarthritis, smoker who comes in for severe right hip osteoarthritis pain for elective total hip arthroplasty. Immediately postoperatively was cold improved with bear hugger. Did not require oxygen for several hours upon awakening is alert and has improved pain in her right hip. Preoperative labs with CR 1.1 A1c 5.4, preoperative EKG sinus rhythm ST segment abnormalities TWI or Q waves. 09/26/2021 No acute events overnight. Patient seen examined bedside. On recliner. Pain is 3 out of 10 has not gotten up yet with physical therapy. She wants to go home with home health. Pending PT OT evaluation. Patient's chart, labs, images were reviewed and discussed with RN Vitals/I&O Vitals/I&O: Vital Signs Date Time Temp Pulse Resp B/P (MAP) Pulse Ox O2 Delivery O2 Flow Rate FiO2 09/26/21 11:57 98.2 75 16 137/83 (101) 96 98.2 09/26/21 09:00 Room Air 09/25/21 14:00 3.0 I & O 09/25/21 09/25/21 09/26/21 15:00 23:00 07:00 Intake Total 2050 ml 200 ml Output Total 200 ml 300 ml 700 ml Balance 1850 ml -300 ml -500 ml Physical Exam General: Alert, Oriented X3, Cooperative, No acute distress Heart: Regular rate, Normal S1, Normal S2, No murmurs Abdomen: Normal bowel sounds, Soft, No tenderness, No hepatosplenomegaly, No masses Extremities: No clubbing, No cyanosis, No edema, Normal pulses, Other (Righ hip tender, dressing dry intact) Skin: No rashes, No breakdown Comment Review of Relevant I have reviewed the following items amita (where applicable) has been applied. Medications: Current Medications Medications (Trade) Dose Ordered Sig/Essence Route PRN Reason Start Time Stop Time Status Last Admin Dose Admin Senna/Docusate Sodium (Senna Plus) 1 tab DAILY PO 09/26/21 09:00 09/26/21 08:38 Clindamycin Phosphate 50 ml @ 100 mls/hr Q6H IV 09/25/21 17:00 09/26/21 05:29 DC 09/26/21 05:30 Acetaminophen (Tylenol) 1,000 mg Q6H PO 09/26/21 09:00 09/26/21 08:39 Gabapentin (Neurontin) 100 mg Q8HRS PO 09/26/21 06:00 09/26/21 05:30 Aspirin (Melissa Aspirin) 325 mg BID PO 09/25/21 21:00 09/26/21 08:38 Justifications for Admission Other Justification BRODY BLOUNT MD September 26, 2021 12:14
[2021-09-26] MEDS ORDERED: BISACODYL 10 MG SUPP.RECT. PR PRN (16:00)
[2021-09-26 18:06] VITALS: BP 116/74
[2021-09-26 22:44] VITALS: BP 150/72
[2021-09-27] MEDS: ACETAMINOPHEN 500 MG TABLET PO SCH ×3 (03:00→15:00)
[2021-09-27] MEDS: IV RINGERS,LACTATED 1000ML 1,000 ML IV SCH (04:00)
[2021-09-27] MEDS: GABAPENTIN 100 MG CAPSULE. PO SCH ×2 (06:27→14:32)
[2021-09-27] MEDS: oxyCODONE IR 5 MG TABLET PO PRN (06:41)
[2021-09-27 06:48] VITALS: BP 125/79
--- NOTE | 2021-09-27 06:57 | NUR ---
Assisted to recliner, ambulates w/o difficulty. Drinking coffee w/o N/V. Refused PARRISH wolff, "too tight." Roxicodone and Tylenol given. Ice pack placed. righ right hip. Call light in reach.
--- NOTE | 2021-09-27 07:23 | PDOC ---
PROGRESS NOTES Date of Service DATE: 09/27/21 TIME: 07:21 Subjective Subjective POD #2 s/p R LEO Patient seen and examined this morning. Awake sitting upright in recliner. Reports some soreness postoperatively but relatively overall her pain is well controlled. Working with therapy. Denies chest pain or shortness of breath. No abdominal pain or discomfort. No acute events reported overnight. Objective Vital Signs Vital Signs Date Time Temp Pulse Resp B/P (MAP) Pulse Ox O2 Delivery O2 Flow Rate FiO2 09/27/21 06:48 98.6 68 16 125/79 (94) 97 Room Air 98.6 09/25/21 14:00 3.0 Physical Exam Orthopedic examination of the right hip reveals surgical dressing to be intact. No drainage noted. Compartments are at the right extremity are soft compressible. Calf is nontender. EHL/FHL intact. Plantarflexion/dorsiflexion intact. Sensation to light touch intact in all dermatomes. Cap refill brisk. Right lower extremity is warm and well-perfused. No pain with passive stretch. Negative Homans' sign. No evidence of thrombus. Labs Laboratory Tests Test 09/25/21 08:10 POC SARS CoV-2 Antigen Negative (NEGATIVE) Assessment Assessment 56-year-old female primary osteoarthritis right hip * s/p R primary total hip arthroplasty 09/25 - Gricel * WBAT RLE * Anterior lateral hip precautions to include no extension past neutral, no adduction past midline, no external rotation past neutral x6 weeks. * PT/OT for mobilization, gait training and fall prevention * ICE operative extremity prn * Maintain surgical dressings R hip * Post-op abx complete * DVT ppx (ASA 325mg BID) aspirin x4 weeks on discharge for DVT prophylaxis * VSS * CM for discharge planning; orthopedically stable for discharge home with home health services. * Follow-up with orthopedic clinic in 1-2 weeks following discharge in the hospital. Call to schedule. [phone]. Justicifation of Admission Dx: Justifications for Admission: Justification of Admission Dx: Yes SHANE HOWARD September 27, 2021 07:22
[2021-09-27 07:38] LABS: HEMATOCRIT 27.8 % (36.0-47.0); HEMOGLOBIN 9.5 g/dL (12.0-15.5)
[2021-09-27] MEDS ORDERED: ASPI325T8 PO (09:09)
[2021-09-27] MEDS ORDERED: ONDA4TAB12 PO (09:09)
[2021-09-27] MEDS ORDERED: OXYC5TAB88 PO (09:09)
[2021-09-27] MEDS: ASPIRIN 325 MG TABLET PO SCH (09:19)
[2021-09-27] MEDS: SENNOSIDES/DOCUSATE 8.6/50MG TABLET. PO SCH (09:19)
[2021-09-27] MEDS ORDERED: oxyCODONE/APAP 5/325 1 TAB TABLET PO PRN (11:15)
--- NOTE | 2021-09-27 11:20 | SNU/HH DC ---
DISCHARGE WITH HOME HEALTH DISCHARGE INFORMATION: Discharge Date: September 27, 2021 Condition on Discharge: Stable CODE STATUS: Code Status: Full HOME HEALTH: Face to Face: I certify this patient is under my care and that I, or a nurse practitioner or [facility] nurse assistant working with me, had a face to face encounter that meets the physician face to face encounter requirements with this patient on []. Medical Complications: S/P Joint Replacement Halfway For: Assess Cardiopulm Status, Assess & Educate Safety, Medication Management, Pain Management RN For Eval/Treatment: Yes Physical Therapy For: Evalulation/Treatment Occupational Therapy For: Evaluation/Treatment Pt Meets Homebound Status: Unsteady balance w/ amb,, Limited distance walking, Unable to negotiate home POST DISCHARGE ORDERS: Activity Instructions for Disc: Activity as tolerated Weight Bearing Status after Di: Touch down weight bearing, Non weight bearing DIET AFTER DISCHARGE: Cardiac FOLLOW-UP: PCP to follow Home Health: Luma Lucero Follow up with: PCP within 2 weeks of discharge Follow Up With: Orthopedic surgery within 2 weeks for postoperative check CERTIFICATION STATEMENT: Certification Statement: Certification Statement: Based on the above finding, I certify that this patient is confined to the home and needs intermittent residential care, physical therapy and/or speech therapy, or continues to need occupational therapy.~ This patient is under my care, and I have initiated the establishment of the plan of care.~ This patient will be followed by myself or a community physician who will periodically review the plan of care. Home Meds Active Scripts Oxycodone HCl (Roxicodone) 5 Mg Tablet, 5 MG PO PRN Q4HRS PRN for PAIN, #28 TAB 0 Refills Prov:SHANE HOWARD PA 09/27/21 Naproxen (NAPROXEN) 500 Mg Tablet, 1 TAB PO BID for 10 Days, #20 TAB 0 Refills Prov:PARESH MILES HATCH BOSS 12/10/18 Reported Medications Meloxicam (MELOXICAM) 15 Mg Tablet, 1 TAB PO BID for pain for 30 Days, #60 TAB 0 Refills 09/14/21 Atorvastatin Calcium (ATORVASTATIN CALCIUM) 10 Mg Tablet, 10 MG PO HS for FOR CHOLESTEROL, #30 TAB 0 Refills 09/14/21 BRODY BLOUNT MD September 27, 2021 11:20
[2021-09-27 12:21] VITALS: BP 160/80
[2021-09-27 15:08] VITALS: BP 155/83
--- NOTE | 2021-09-27 15:37 | NUR ---
Tylenol not given. Pt started on Percocet.
--- NOTE | 2021-09-27 16:45 | NUR ---
Discharge instructions given. Answered questions and concerns. Verbalized understanding. Escorted out by w/c accompanied by granddaughter.
--- NOTE | 2021-09-30 16:50 | PDOC3 ---
[facility]-Discharge Summary Date of Admission: Date of Admission: September 25, 2021 Date of Discharge: Date of Discharge: September 27, 2021 Discharge Diagnosis: Discharge Diagnosis: Right hip osteoarthritis - s/p THR. Aspirin for thromboprophylaxis. POD IV pain control. Early ambulation. Bedside incentive spirometer. Pending PT OT evaluation Smoker - counseled on cessation Hypoxia - transient post-operatively. Advised outpatient sleep study, smoking cessation, prn nebs Hypothermia - transient post-op Consults: Consults: per ortho: s/p R primary total hip arthroplasty 09/25 - [facility] * WBAT RLE * Anterior lateral hip precautions to include no extension past neutral, no adduction past midline, no external rotation past neutral x6 weeks. * PT/OT for mobilization, gait training and fall prevention * ICE operative extremity prn * Maintain surgical dressings R hip * Post-op abx complete * DVT ppx (ASA 325mg BID) aspirin x4 weeks on discharge for DVT prophylaxis * VSS * CM for discharge planning; orthopedically stable for discharge home with home health services. * Follow-up with orthopedic clinic in 1-2 weeks following discharge in the hospital. Call to schedule. [phone]. Hospital Course: Hospital Course: 56yo female with PMHx HLD, osteoarthritis, smoker who comes in for severe right hip osteoarthritis pain for elective total hip arthroplasty. Immediately postoperatively was cold improved with bear hugger. Did not require oxygen for several hours upon awakening is alert and has improved pain in her right hip. Preoperative labs with CR 1.1 A1c 5.4, preoperative EKG sinus rhythm ST segment abnormalities TWI or Q waves. 09/26/2021 No acute events overnight. Patient seen examined bedside. On recliner. Pain is 3 out of 10 has not gotten up yet with physical therapy. She wants to go home with home health. Pending PT OT evaluation. Patient's chart, labs, images were reviewed and discussed with RN By day of discharge patient was tolerating diet and pain was well controlled. Rest of hospital course was uneventful. Patient will be discharged with home with home health Disposition: Disposition/Orders: D/C to Home w/ HH Activity: Activity: Resume previous activity Diet: Diet: Cardiac Medications: Home Meds Active Scripts Aspirin (ASPIRIN) 325 Mg Tablet, 325 MG PO BID for DVT ppx, #60 TAB 0 Refills Prov:ANITASHANE PA 09/27/21 Ondansetron (ONDANSETRON ODT) 4 Mg Tab.rapdis, 4 MG PO PRN Q6HRS PRN for NAUSEA/VOMITING, #7 TAB 0 Refills Prov:TROY HOWARDMELONY SEGUNDO 09/27/21 Oxycodone HCl (Roxicodone) 5 Mg Tablet, 5 MG PO PRN Q4HRS PRN for PAIN, #28 TAB 0 Refills Prov:NEWSHANE BRAND 09/27/21 Reported Medications Meloxicam (MELOXICAM) 15 Mg Tablet, 1 TAB PO BID for pain for 30 Days, #60 TAB 0 Refills 09/14/21 Atorvastatin Calcium (ATORVASTATIN CALCIUM) 10 Mg Tablet, 10 MG PO HS for FOR CHOLESTEROL, #30 TAB 0 Refills 09/14/21 Discontinued Scripts Naproxen (NAPROXEN) 500 Mg Tablet, 1 TAB PO BID for 10 Days, #20 TAB 0 Refills Prov:PARESH MILES MAINTENANCE CUSTODIAN 12/10/18 Scheduled Aspirin (Aspirin), 325 MG PO BID Atorvastatin Calcium (Atorvastatin Calcium), 10 MG PO HS, (Reported) Meloxicam (Meloxicam), 1 TAB PO BID, (Reported) Scheduled PRN Ondansetron (Ondansetron Odt), 4 MG PO PRN Q6HRS PRN for NAUSEA/VOMITING Oxycodone HCl (Roxicodone), 5 MG PO PRN Q4HRS PRN for PAIN Discontinued Medications Naproxen (Naproxen), 1 TAB PO BID Total Time: Total Time: Total time spent was 32 minutes in preparing scripts, discharge planning with SWI and RN and preparing this discharge summary Patient seen and examined on day of discharge. No acute abnormal findings. Justicifation of Admission Dx: Justifications for Admission: Justification of Admission Dx: Yes BRODY BLOUNT MD September 30, 2021 16:50
--- NOTE | 2021-10-03 11:59 | OP ---
DATE OF SURGERY: 09/25/2021 PREOPERATIVE DIAGNOSIS: Severe degenerative joint disease, right hip. POSTOPERATIVE DIAGNOSIS: Severe degenerative joint disease, right hip. PROCEDURE: Right total hip arthroplasty. SURGEON: Reinier Monsalve Jr, DO RAYON CONER: Rhys Reynolds. ANESTHESIA: General. COMPLICATIONS: None. ESTIMATED BLOOD LOSS: 200 mL DESCRIPTION OF PROCEDURE: The patient was taken to the operative suite, given a general anesthetic, placed in a lateral decubitus position. Appropriate padding was placed to hold the patient in appropriate position with the affected hip upright. The right hip was then prepped and draped in a sterile fashion. Incision was made through skin and subcutaneous tissues down to the iliotibial band. Superficial tissues were coagulated using a Bovie knife. The IT band was then incised along the area of the fascia also overlying the gluteus medius in line with the skin incision. This was retracted anteriorly and posteriorly. The inferior one-half of the gluteus medius was then noted on the insertion into the femur. This was removed on the inferior aspect as noted. This was retracted anteriorly. The capsule was then identified and opened up in an H fashion. There were noted to be changes within the joint; however, after manually dislocating the hip, the femoral head and the acetabulum were noted to have severe degenerative changes with osteophytes, which were removed using a rongeur. One fingerbreadth above the lesser trochanter, the cut was made for the femoral component to remove the head and a portion of the neck of the femur. The leg was then placed in appropriate position where retractors were placed anteriorly, posteriorly and the rim of the labrum was removed as well as acetabular osteophytes. Reaming began for her at size 42 at 1 mm increments up to size 48, which was noted to be the best size for the acetabulum. The acetabulum was noted to be 48 and then was impacted. The acetabular component was noted to be stable, but for further security, 2 screws were placed through the cup into the ilium noted to have excellent purchase and good fixation. The polyethylene was then inserted and impacted into the acetabular component noted to be stable and secure. Attention was then directed to the femur. The safe deposit box rental clerk was used to open up the femoral canal. The IM guide was then placed and removed and then broaching began at size [address] all the way up to size 2 femur. This was noted to fill the canal appropriately. This was then trialled with a -2.5 cm femoral head as well as a neutral head. The -2.5 was noted to be the most stable and secured through extremes in range of motion with excellent stability. This was then manually dislocated. All trial components were removed from the femoral side. The size 2 femur was then placed. Then, the -2.5 mm femoral head was then placed. This was a ceramic head. This was also impacted. This was then manually relocated, again taken through extremes in range of motion. This was then thoroughly irrigated as was as throughout the case and then this was irrigated again with Betadine and then completely cleared out with irrigation. The capsule was then reapproximated. The gluteus medius and minimus were reapproximated to their original sites of insertion. The iliotibial band was closed in a running fashion. The superficial tissues and skin was reapproximated. Local was placed within the incision site. Sterile dressing was applied. The patient was then taken from the operative bed to the postoperative bed, taken to the PACU in stable condition. LORI DR: Cecil TID: [id number]
== END 2021-09-27 16:45 | disposition home health service (06) ==
LOC: SURG 07:51 → 4 SOUTHEST 10:47
PROVIDERS: ADMIT Orthopaedic Surgery; ATTEND Orthopaedic Surgery
DX: M16.11 Unilateral primary osteoarthritis, right hip (principal); Z20.822 Contact with and (suspected) exposure to COVID-19; R09.02 Hypoxemia; T68.XXXA Hypothermia, initial encounter; E78.5 Hyperlipidemia, unspecified; F17.200 Nicotine dependence, unspecified, uncomplicated; Z90.710 Acquired absence of both cervix and uterus; Z98.51 Tubal ligation status; Z79.82 Long term (current) use of aspirin
CPT/HCPCS: 27130; 36415; 73501; 85014; 85018; 86850; 86900; 86901; 88305; 88311; 96365; 96366; 96375; 97116; 97150; 97162; 97166; 97530; 97535; A4213; A4930; A6258; A6550; C1776; G0378; G0379; J0171; J1100; J1170; J1885; J2270; J2370; J2405; J2704; J2795; J3010; J3490; J7120